=== PATIENT | male | born 1990 | race African-American/Black ===

== ENCOUNTER 2020-11-23 14:25 | Emergency (ER) | payer MEDICAID ==
[~2020-11-23] VITALS: Ht 170.2 cm; Wt 68.0 kg
[2020-11-23 14:34] VITALS: Ht 170.2 cm; Wt 68.0 kg
[2020-11-23] MEDS ORDERED: AUGMENTIN 875-1 EACH PO (15:00)
[2020-11-23 15:22] VITALS: BP 122/91
== END 2020-11-23 15:22 | disposition home or self-care (01) ==
LOC: ED 14:25
DX: H66.91 Otitis media, unspecified, right ear (principal)

== ENCOUNTER 2020-11-27 20:40 | Emergency (ER) | payer MEDICAID ==
[~2020-11-27 20:40] MED LIST: AUGMENTIN 875-1 EACH PO
== END 2020-11-27 22:30 | disposition left against medical advice (07) ==
LOC: ED 20:40
DX: Z53.21 Procedure and treatment not carried out due to patient leaving prior to being seen by health care provider (principal)